=== PATIENT | male | born 1965 | race Caucasian/White ===

== ENCOUNTER 2017-03-01 04:33 | Emergency (ER) | payer BC ==
--- NOTE | 2017-03-01 05:18 | ER Document Report ---
Doctor's Note Notes: 03/01/17 05:17 I performed a quick triage evaluation the patient. Patient is a 51-year-old male who presents with complaint of intermittent pain for a week and the suprapubic region. He says he's been urinating very frequently. Tonight the pain became worse and he could not urinate. Rub for my arrival into the room patient urinated 650 mL's of urine. He says he still has some pain but does feel much improved as compared to when he first arrived. No fevers. No infections. No history of kidney stones. No known history of prostate disease. No recent trauma. No other complaints at this time. I did do a bedside ultrasound. His urine is now flat since urinating. I will order urinalysis as well as a chemistry panel check his kidney function. 03/01/17 05:18
[2017-03-01 05:45] LABS: AMORPHOUS SEDIMENT,URINE TRACE /HPF; APPEARANCE,URINE CLOUDY; BILIRUBIN,URINE NEGATIVE (NEGATIVE); GLUCOSE, URINE NEGATIVE (NEGATIVE); KETONES,URINE NEGATIVE (NEGATIVE); LEUKOCYTE ESTERASE,URINE NEGATIVE (NEGATIVE); NITRITE,URINE NEGATIVE (NEGATIVE); PROTEIN,URINE NEGATIVE (NEGATIVE); URINE SPECIFIC GRAVITY 1.016; UROBILINOGEN,URINE NEGATIVE mg/dL (<2.0)
[2017-03-01 06:03] LABS: ABSOLUTE EOSINOPHILS # (AUTO) 0.1 10^3/uL (0.0-0.6); ABSOLUTE LYMPHOCYTES (AUTO) 0.7 10^3/uL (0.5-4.7); ABSOLUTE NEUT (AUTO) 8.8 10^3/uL (1.7-8.2); BASOPHILS % (AUTO) 0.4 % (0-2); EOSINOPHILS % (AUTO) 0.9 % (0-6); HEMATOCRIT 40.8 % (37.9-51.0); HGB HCT DIFFERENCE 1.2; LYMPHOCYTES % (AUTO) 6.4 % (13-45); MEAN CORPUSCULAR HEMOGLOBIN 31.1 pg (27.0-33.4); MEAN CORPUSCULAR HGB CONC 34.3 g/dL (32.0-36.0); MEAN CORPUSCULAR VOLUME 91 fl (80-97); MONOCYTES % (AUTO) 9.3 % (3-13); WHITE BLOOD COUNT 10.6 10^3/uL (4.0-10.5)
[2017-03-01 06:23] LABS: ANION GAP 9 (5-19); BLOOD UREA NITROGEN 20 mg/dL (7-20); CALCIUM 9.6 mg/dL (8.4-10.2); CARBON DIOXIDE 28 mmol/L (22-30); CHLORIDE 107 mmol/L (98-107); CREATININE RESULT 0.95 mg/dL (0.52-1.25); GLUCOSE 111 mg/dL (75-110); POTASSIUM 4.6 mmol/L (3.6-5.0)
--- NOTE | 2017-03-01 06:30 | ER Document Report ---
ED Psych Disorder / Suicide - General Chief Complaint: Urinary Retention Stated Complaint: ABDOMINAL PAIN TRAVEL OUTSIDE OF THE [place] IN LAST 30 DAYS: No - Related Data Allergies/Adverse Reactions: ibuprofen Adverse Reaction (Verified 03/01/17 04:40) watery eyes, sneezing Past Medical History Renal/ Medical History: Denies: Hx Peritoneal Dialysis Physical Exam - Vital signs Vitals: Temp Pulse Resp BP Pulse Ox 98.3 F 77 22 H 119/76 96 03/01/17 04:38 03/01/17 04:38 03/01/17 04:38 03/01/17 04:38 03/01/17 04:38 Course - Vital Signs Vital signs: Temp Pulse Resp BP Pulse Ox 98.3 F 77 22 H 119/76 96 03/01/17 04:38 03/01/17 04:38 03/01/17 04:38 03/01/17 04:38 03/01/17 04:38 - Laboratory Result Diagrams: 03/01/17 05:50 03/01/17 05:50 Laboratory results interpreted by me: 03/01/17 03/01/17 05:50 05:50 WBC 10.6 H Seg Neutrophils % 83.0 H Lymphocytes % 6.4 L Absolute Neutrophils 8.8 H Glucose 111 H
--- NOTE | 2017-03-01 06:31 | ER Document Report ---
ED GI/ - General Mode of Arrival: Ambulatory Information source: Patient TRAVEL OUTSIDE OF THE [place] IN LAST 30 DAYS: No - HPI Patient complains to provider of: Abdominal pain, Urinary retention Onset: Other - overnight, [id number] prior to arrival Timing/Duration: Better Quality of pain: Cramping, Fullness, Pressure Pain Level: 5 - at worst Location: Suprapubic Exacerbated by: Denies Relieved by: Denies Similar symptoms previously: No Recently seen / treated by doctor: No <SIERRA LAGOS - Last Filed: 03/01/17 06:41> <ERICK GRIER - Last Filed: 03/01/17 10:28> - General Chief Complaint: Urinary Retention Stated Complaint: ABDOMINAL PAIN Notes: Patient is a 51-year-old male that presents to the emergency department today with complaints of abdominal pain which began around 0300 this morning prior to arrival. Patient describes the pain as "cramps". Patient states his lower abdomen felt "hard" and he was unable to urinate. Patient states he last urinated approximately at [id number] last night without any difficulty. Patient states he has never had urinary retention in the past. Patient denies any nausea, vomiting, fevers, chills, blood in his urine/stool, abnormal rashes, or unusual swelling. (SIERRA LAGOS) - Related Data Allergies/Adverse Reactions: ibuprofen Adverse Reaction (Verified 03/01/17 04:40) watery eyes, sneezing Past Medical History - General Information source: Patient - Social History Smoking Status: Never Smoker Cigarette use (# per day): No Frequency of alcohol use: None Drug Abuse: None Lives with: Family Family History: Reviewed & Not Pertinent - Medical History Medical History: Negative Surgical Hx: Negative <SIERRA LAGOS - Last Filed: 03/01/17 06:41> Review of Systems - Review of Systems Constitutional: See HPI, Diaphoresis. denies: Chills, Fever EENT: No symptoms reported Cardiovascular: No symptoms reported Respiratory: No symptoms reported Gastrointestinal: See HPI, Abdominal pain. denies: Nausea, Vomiting Genitourinary: See HPI, Retention. denies: Hematuria Male Genitourinary: No symptoms reported Musculoskeletal: No symptoms reported Skin: No symptoms reported Hematologic/Lymphatic: No symptoms reported Neurological/Psychological: No symptoms reported -: Yes All other systems reviewed and negative <SIERRA LAGOS - Last Filed: 03/01/17 06:41> Physical Exam <SIERRA LAGOS - Last Filed: 03/01/17 06:41> <ERICK GRIER - Last Filed: 03/01/17 10:28> - Vital signs Vitals: Temp Pulse Resp BP Pulse Ox 98.3 F 77 22 H 119/76 96 03/01/17 04:38 03/01/17 04:38 03/01/17 04:38 03/01/17 04:38 03/01/17 04:38 - Notes Notes: Physical Exam: General: Alert, appears well. HEENT: Normocephalic. Atraumatic. PERRL. Extraocular movements intact. Oropharynx clear. Neck: Supple. Non-tender. Respiratory: No respiratory distress. Clear and equal breath sounds bilaterally. Cardiovascular: Regular rate and rhythm. Abdominal: Moderate diffuse lower abdominal tenderness with palpation, worse suprapubically. Positive guarding. No distension. Normal Bowel Sounds. Back: Non-tender. No deformity or step off. Extremities: Moves all four extremities. Upper extremities: Normal inspection. Normal ROM. Lower extremities: Normal inspection. No edema. Normal ROM. Neurological: Normal cognition. AAOx4. Normal speech. Psychological: Normal affect. Normal Mood. Skin: Warm. Dry. Normal color. (SIERRA LAGOS) Course - Laboratory Result Diagrams: 03/01/17 05:50 03/01/17 05:50 <SIERRA LAGOS - Last Filed: 03/01/17 06:41> - Laboratory Result Diagrams: 03/01/17 05:50 03/01/17 05:50 <ERICK GRIER - Last Filed: 03/01/17 10:28> - Re-evaluation Re-evalutation: 03/01/17 08:35 Patient presents to emergency department stating that he started having some lower abdominal pain through the day yesterday. Last night it got bad and he did have an episode of vomiting. Patient last urinated at 10:30 PM last night patient said that the pain was excruciating this morning so he came to the ED. He is unable to void this morning. On arrival in emergency Department they placed a Kimball catheter and got out about 600 mL of urine. It is nonbloody. The patient indicates his pain improved after catheter was placed and his bladder was drained. However he is tender with guarding in the lower abdomen. Suspicious for diverticulitis or appendicitis. CT abdomen reveals sigmoid diverticulitis. Patient's is athletic and so we will not be using Cipro due to the concerns for tendinitis/rupture. I'm giving an IV dose of Unasyn and then we will have him on oral Augmentin as an outpatient. We'll have him follow-up with Dr. Kerr. Discharging the Kimball catheter and giving him more fluids to see if he is able to void on his own prior to discharge. 03/01/17 08:43 03/01/17 10:27 The patient has urinated on his own. He is comfortable and is going home. He is being discharged on Augmentin and given a prescription for Zofran in case he develops any nausea. He is to follow up with his primary physician. (ERICK GRIER) - Vital Signs Vital signs: Temp Pulse Resp BP Pulse Ox 98.3 F 77 22 H 119/76 96 03/01/17 04:38 03/01/17 04:38 03/01/17 04:38 03/01/17 04:38 03/01/17 04:38 - Laboratory Laboratory results interpreted by me: 03/01/17 03/01/17 05:50 05:50 WBC 10.6 H Seg Neutrophils % 83.0 H Lymphocytes % 6.4 L Absolute Neutrophils 8.8 H Glucose 111 H Discharge <SIERRA LAGOS - Last Filed: 03/01/17 06:41> <ERICK GRIER - Last Filed: 03/01/17 10:28> - Discharge Clinical Impression: Sigmoid diverticulitis Condition: Stable Disposition: HOME, SELF-CARE Instructions: Diverticulitis ([facility]), Low Residue Diet ([facility]) Additional Instructions: Please follow-up with your primary physician in 2-3 days for recheck. Review information provided in this discharge summary regarding diverticulitis. Return at any time to the emergency department for fever, vomiting so not to keep down fluids, recurrent abdominal pain not controlled by tylenol/motrin, or any other worsening or concerning symptoms. Diverticulitis You have been diagnosed as having diverticulitis. This is an inflammation of a small pouch attached to the colon, called a diverticulum. Many of these small pouches can form on the colon as you get older. They are often caused by constipation. When inflamed or infected, symptoms arise -- usually abdominal pain, constipation or diarrhea, fever, and blood in the stool. Severe diverticulitis may require hospitalization. More mild cases are usually treated with antibiotics and clear liquid diet. As you improve, a diet low in residue (one which forms little stool) is prescribed. When you are better, you should eat a high-fiber diet. Stool softeners ( like Metamucil) are usually recommended. Call the doctor or go to the hospital if there is increasing pain, vomiting , high fever, large amounts of blood passed, or if bowel movements cease. Prescriptions: Amox Tr/Potassium Clavulanate [Augmentin 875-125 Tablet] 1 tab PO BID 10 Days Ondansetron [Zofran Odt 4 mg Tablet] 1 - 2 tab PO Q4H PRN #15 tab.rapdis PRN Reason: For Nausea/Vomiting Forms: Return to Work Referrals: FOSTER MO MD [ACTIVE STAFF] - Follow up as needed Scribe Attestation: 03/01/17 08:40 I personally performed the services described in the documentation, reviewed and edited the documentation which was dictated to the scribe in my presence, and it accurately records my words and actions. (ERICK GRIER) Scribe Documentation - Scribe Written by Ariel:: Ariel Tapia, 03/01/2017 0641 acting as scribe for :: George <SIERRA LAGOS - Last Filed: 03/01/17 06:41>
[2017-03-01] MEDS ORDERED: AMPICILLIN SOD/SULBACTAM 3 GM VIAL IV ONE (08:26)
[2017-03-01] MEDS ORDERED: NORMAL SALINE 1000 ML 1,000 ML IV ONE (08:33)
[2017-03-01 10:47] VITALS: BP 120/73
== END 2017-03-01 10:35 | disposition home or self-care (01) ==
LOC: ER 04:33
DX: K57.32 Diverticulitis of large intestine without perforation or abscess without bleeding (principal); R33.9 Retention of urine, unspecified; R10.9 Unspecified abdominal pain; Z88.6 Allergy status to analgesic agent
CPT/HCPCS: 99284; 51702; 96365; 36415; 85025; 80048; 81001; 74177; J0295; J7030